=== PATIENT | female | born 1960 | race Caucasian/White ===

== ENCOUNTER 2023-02-05 01:47 | Outpatient (CLI) | payer BC, SELFPAY ==
--- NOTE | 2023-02-05 | DI.MRI_ITS ---
Exam(s) MR BRAIN WO EXAM: MR BRAIN WO CLINICAL HISTORY: APHASIA, R47.01, ? STROKE/TUMOR TECHNIQUE: Multiplanar multisequence MRI of the brain was performed. COMPARISON: No exams were available for comparison FINDINGS: VENTRICLES AND EXTRA AXIAL SPACES: Normal in size and morphology for the patient's age. MIDLINE SHIFT: None. CEREBRAL PARENCHYMA: No focus of restricted diffusion to suggest acute infarct. No space-occupying le vanna identified. There are multiple foci of hyperintense signal seen in the white matter likely refle cting small vessel ischemic disease.There are multiple foci of hypointense signal seen on the gradien t images in the cerebrum and cerebellum. HEMORRHAGE: Please see the above section on cerebral parenchyma. BRAINSTEM/CEREBELLUM: Normal. CALVARIUM: Normal. VISUALIZED PARANASAL SINUSES/MASTOIDS:There is mucosal thickening seen in the floor of both maxillary sinuses. The remaining visualized paranasal sinuses and mastoid air cells are clear. [place]: Normal flow void. PITUITARY GLAND: Unremarkable. OTHER FINDINGS: None. IMPRESSION: 1. No evidence of an acute infarct. 2. Age-related cerebral atrophy and small vessel ischemic disease. 3. Multiple hypointense signal foci in the cerebrum and cerebellum on the gradient images. Different ial considerations include cerebral amyloid disease, hypertensive microhemorrhages, multiple vascular malformations, traumatic injury, hemorrhagic lacunar infarcts, or possibly metastases. If clinicall y indicated, a postcontrast MRI may be obtained for further evaluation. DATA REPOSITORY:
== END 2023-02-05 02:07 ==
PROVIDERS: PCP Physician Assistant; Visit Provider Physician Assistant
DX: R47.01 Aphasia (principal)
CPT/HCPCS: 70551